=== PATIENT | female | born 1955 | race Hispanic/Latino ===

== ENCOUNTER 2021-01-28 06:27 | Day surgery (SDC) | payer MEDICARE ==
[2021-01-25 11:04] LABS: BASOPHILS % (AUTO) 1.4 % (0.0-5.0); EOSINOPHILS % (AUTO) 3.1 % (0.0-8.0); HEMATOCRIT 42.2 % (36-48); MEAN CORPUSCULAR HEMOGLOBIN 31.5 pg (27.0-33.0); MEAN CORPUSCULAR HGB CONC 32.7 g/dL (32.0-36.0); MEAN CORPUSCULAR VOLUME 96.3 fL (79-99); NEUTROPHILS % (AUTO) 65.1 % (40.0-77.0); PLATELET COUNT (AUTO) 334 K/uL (130-400); RED BLOOD CELL COUNT(AUTO) 4.38 MIL/uL (4.00-5.50); RED CELL DISTRIBUTION WIDTH 12.6 % (11.0-15.5)
[2021-01-25 11:57] LABS: CREATININE 0.8 mg/dL (0.5-1.5); POTASSIUM 4.1 mmol/L (3.5-5.1)
[2021-01-25 12:12] LABS: INR 1.01 (0.85-1.15)
[~2021-01-28] VITALS: Ht 152.4 cm; Wt 86.6 kg
[2021-01-28] VITALS (20 sets, daily range): BP systolic 135–159; BP diastolic 45–75
[~2021-01-28 06:27] MED LIST: ALBU8.5H8 IH; ASPI-1443 PO; CHOL500045 PO; FURO20TA4 PO; GABA300C PO; LOSA50TA64 PO; METF-444 PO; METO-408 PO; MONT-39 PO; NAPR-1023 PO; OMEG100014 PO; OMEP20TA25 PO; ROSU20TA31 PO
[2021-01-28] MEDS ORDERED: LIDOCAINE PF 100MG/5ML (2%) SYRINGE 5ML ONE (06:51)
[2021-01-28] MEDS ORDERED: SUCCINYLCHOLINE CHLORIDE 20 MG/ML 10 ML VIAL ONE (06:51)
[2021-01-28] MEDS ORDERED: ONDANSETRON 4MG INJ ONE (06:51)
[2021-01-28] MEDS ORDERED: GLYCOPYRROLATE 1 MG/5 ML SYRINGE ONE (06:52)
[2021-01-28] MEDS ORDERED: NEOSTIGMINE 5MG/5ML SYR IV ONE (06:52)
[2021-01-28] MEDS ORDERED: PROPOFOL 10 MG/ML 20ML VIAL IV ONE (06:52)
[2021-01-28] MEDS ORDERED: ROCURONIUM 10MG/1ML SYR 10 MG/ML ML ONE (06:52)
[2021-01-28] MEDS ORDERED: DEXAMETHASONE SOD PHOSPHATE 10MG/ML 1ML VIAL ONE (06:52)
[2021-01-28] MEDS ORDERED: MIDAZOLAM HCL 1 MG/ML 2ML VIAL ONE (06:52)
[2021-01-28] MEDS ORDERED: FENTANYL CITRATE PF 50 MCG/1 ML 2ML VIAL ONE (06:52)
[2021-01-28] MEDS ORDERED: EPHEDRINE SULFATE 50 MG/ML AMPULE ONE (06:56)
[2021-01-28] MEDS ORDERED: CEFAZOLIN SODIUM 1 GM VIAL ONE (07:00)
[2021-01-28] MEDS ORDERED: 0.9%NACL 1000ML 1,000 ML IV ONE (07:01)
[2021-01-28] MEDS ORDERED: BUPIVACAINE/EPI/PF 0.25% 30ML VIAL IJ ONE (07:02)
[2021-01-28] MEDS ORDERED: SUGAMMADEX SODIUM 200 MG/2 ML VIAL IV ONE (08:28)
== END 2021-01-28 11:25 | disposition home or self-care (01) ==
LOC: DAH 06:27
PROVIDERS: ATTEND Orthopaedic Surgery Orthopaedic Surgery of the Spine
DX: S83.282A Other tear of lateral meniscus, current injury, left knee, initial encounter (principal); Z20.822 Contact with and (suspected) exposure to COVID-19; J45.909 Unspecified asthma, uncomplicated; E66.9 Obesity, unspecified; I25.10 Atherosclerotic heart disease of native coronary artery without angina pectoris; I10 Essential (primary) hypertension; E78.5 Hyperlipidemia, unspecified; M19.90 Unspecified osteoarthritis, unspecified site; E11.9 Type 2 diabetes mellitus without complications; Z90.49 Acquired absence of other specified parts of digestive tract; Z95.5 Presence of coronary angioplasty implant and graft; Z90.89 Acquired absence of other organs; Z79.01 Long term (current) use of anticoagulants; Z98.890 Other specified postprocedural states; Z79.899 Other long term (current) drug therapy; Z79.82 Long term (current) use of aspirin; Z88.6 Allergy status to analgesic agent; X58.XXXA Exposure to other specified factors, initial encounter; Y93.89 Activity, other specified; Y92.89 Other specified places as the place of occurrence of the external cause
CPT/HCPCS: 29881; 36415 ×2; 80048; 82948 ×2; 85025; 85610; 86850 ×2; 86900 ×2; 86901 ×2; 87635; 93005; 97039; 97116; 97161; A4215; A4221; A4222; A4223; A4606; A4649 ×3; A4663; A4930 ×3; A6223; C9803; J0330; J0690; J1100; J2001; J2250; J2405; J2704; J2710; J3010; J3490 ×3; J7030

== ENCOUNTER 2022-08-15 11:08 | Observation (INO) | payer OTHER, MEDICARE ==
[~2022-08-15] VITALS: Ht 152.4 cm; Wt 81.8 kg
[~2022-08-15 11:08] MED LIST changes: +OMEP20TA20 PO; -OMEP20TA25 PO; -ROSU20TA31 PO; +ROSU20TA73 PO
[2022-08-15 12:05] LABS: BASOPHILS % (AUTO) 0.6 % (0.0-5.0); EOSINOPHILS % (AUTO) 1.9 % (0.0-8.0); HEMATOCRIT 38.2 % (36-48); LYMPHOCYTES % (AUTO) 20.8 % (21.0-51.0); MEAN CORPUSCULAR HEMOGLOBIN 31.6 pg (27.0-33.0); MEAN CORPUSCULAR VOLUME 92.7 fL (79-99); MONOCYTES % (AUTO) 4.9 % (3.0-13.0); NEUTROPHILS % (AUTO) 70.5 % (40.0-77.0); PLATELET COUNT (AUTO) 367 K/uL (130-400); RED BLOOD CELL COUNT(AUTO) 4.12 MIL/uL (4.00-5.50); RED CELL DISTRIBUTION WIDTH 12.9 % (11.0-15.5); WHITE BLOOD COUNT (AUTO) 12.6 K/uL (4.8-10.8)
[2022-08-15 12:11] LABS: APPEARANCE,URINE CLOUDY (CLEAR); BILIRUBIN,URINE NEGATIVE (NEGATIVE); COLOR,URINE LIGHT-YELLOW (YELLOW); GLUCOSE, URINE (UA) NEGATIVE (NEGATIVE); KETONES,URINE NEGATIVE (NEGATIVE); LEUKOCYTE ESTERASE ,URINE 25 Leu/uL (NEGATIVE); NITRATE,URINE NEGATIVE (NEGATIVE); OCCULT BLOOD,URINE LARGE (NEGATIVE); PROTEIN,URINE 10 mg/dL (NEGATIVE); UROBILINOGEN,URINE 0.2 mg/dL (0.2-1.0)
[2022-08-15 12:21] LABS: POTASSIUM 4.2 mmol/L (3.5-5.1)
[2022-08-15 12:26] LABS: ALBUMIN 3.5 g/dL (3.5-5.0); TOTAL PROTEIN, SERUM 7.6 g/dL (6.0-8.3)
[2022-08-15 12:29] LABS: BACTERIA,URINE RARE /HPF (None Seen); MUCUS,URINE RARE LPF (None Seen); RBC,URINE TNTC /HPF (0-1); SQUAMOUS EPITHELIAL CELL,UR RARE /HPF (0-2); TRANSITIONAL EPI CELLS,URINE RARE /HPF (None Seen); URIC ACID CRYSTALS,URINE RARE /LPF (None Seen)
[2022-08-15] MEDS ORDERED: PROCHLORPERAZINE 10MG/2ML INJ IV ONE (12:30)
[2022-08-15] MEDS ORDERED: ACETAMINOPHEN 500 MG TABLET PO ONE (12:30)
[2022-08-15] MEDS ORDERED: DiphenhydrAMINE HCL 50 MG/ML VIAL IV ONE (12:30)
[2022-08-15] MEDS ORDERED: 0.9%NACL 1000ML 1,000 ML IV ONE (12:30)
[2022-08-15] MEDS ORDERED: 0.9%NACL 1000ML 500 ML IV ONE ×2 (12:30→16:30)
[2022-08-15] MEDS ORDERED: CEFTRIAXONE 1G VIAL IVPB ONE (14:30)
[2022-08-15] MEDS ORDERED: KETOROLAC 15MG/ML VIAL (15MG/ML) IV PRN (16:30)
[2022-08-15 17:20] LABS: HEMOGLOBIN A1C 6.3 % (4.0-6.0)
[2022-08-15] MEDS: IPRATROPIUM/ALBUTEROL SULFATE 3 ML SOLUTION IH SCH (18:23)
[2022-08-15] MEDS: CARVEDILOL 12.5 MG TABLET PO SCH (20:07)
[2022-08-15 22:23] LABS: AMPHET/METH SCREEN,URINE NEGATIVE (NEGATIVE); BARBITURATE SCREEN, URINE NEGATIVE (NEGATIVE); BENZODIAZEPINES SCREEN,URINE NEGATIVE (NEGATIVE); CANNABINOID SCREEN,URINE NEGATIVE (NEGATIVE); COCAINE SCREEN,URINE NEGATIVE (NEGATIVE); OPIATE SCREEN,URINE NEGATIVE (NEGATIVE); PHENCYCLIDINE SCREEN,URINE NEGATIVE (NEGATIVE)
[2022-08-15 22:45] VITALS: BP 152/63
[2022-08-15] MEDS ORDERED: MULT-1290 PO (23:47)
[2022-08-15] MEDS ORDERED: IBUP-2077 PO (23:47)
[2022-08-15] MEDS ORDERED: LOSA1TAB42 PO (23:48)
[2022-08-15] MEDS ORDERED: CARV12.511 PO (23:50)
[2022-08-15] MEDS ORDERED: FLUT1AER IH (23:52)
[2022-08-15] MEDS ORDERED: FLUT16H NASAL (23:52)
[2022-08-16] MEDS: IPRATROPIUM/ALBUTEROL SULFATE 3 ML SOLUTION IH SCH ×5 (00:01→23:18)
[2022-08-16 02:00] VITALS: BP 119/52
[2022-08-16 04:00] VITALS: BP 135/52
[2022-08-16 08:00] VITALS: BP 135/55
[2022-08-16] MEDS ORDERED: PNEUMOCOCCAL VACCINE POLYVALENT 0.5 ML/VIAL [PPV] IM ONE (09:00)
[2022-08-16] MEDS ORDERED: FLUTICASONE PROPIONATE 50MCG/SPRAY 16 GM BOTTLE EN PRN (09:30)
[2022-08-16 10:07] LABS: BASOPHILS % (AUTO) 0.6 % (0.0-5.0); EOSINOPHILS % (AUTO) 1.6 % (0.0-8.0); LYMPHOCYTES % (AUTO) 20.9 % (21.0-51.0); MEAN CORPUSCULAR HEMOGLOBIN 31.2 pg (27.0-33.0); MEAN CORPUSCULAR HGB CONC 33.3 g/dL (32.0-36.0); MEAN CORPUSCULAR VOLUME 93.5 fL (79-99); MONOCYTES % (AUTO) 5.1 % (3.0-13.0); NEUTROPHILS % (AUTO) 70.5 % (40.0-77.0); PLATELET COUNT (AUTO) 280 K/uL (130-400); RED BLOOD CELL COUNT(AUTO) 3.53 MIL/uL (4.00-5.50); RED CELL DISTRIBUTION WIDTH 12.9 % (11.0-15.5); WHITE BLOOD COUNT (AUTO) 9.5 K/uL (4.8-10.8)
[2022-08-16 10:29] LABS: CREATININE 0.9 mg/dL (0.5-1.5); POTASSIUM 3.4 mmol/L (3.5-5.1); TOTAL PROTEIN, SERUM 6.5 g/dL (6.0-8.3)
[2022-08-16] MEDS: PANTOPRAZOLE 40 MG/VIAL IVP SCH (11:05)
[2022-08-16] MEDS: CEFTRIAXONE 2GM VIAL IVPB SCH (11:07)
[2022-08-16] MEDS: CARVEDILOL 12.5 MG TABLET PO SCH ×2 (11:07→20:42)
[2022-08-16 12:00] VITALS: BP 136/76
[2022-08-16] MEDS: LOSARTAN 50 MG TABLET PO SCH (13:04)
[2022-08-16] MEDS: ASPIRIN 81 MG EC TAB PO SCH (13:04)
[2022-08-16] MEDS: FLUTICASONE/VILANTEROL 1 EACH AER.POW.BA IH SCH (13:05)
[2022-08-16] MEDS ORDERED: PROCHLORPERAZINE EDISYLATE 5 MG/ML 2 ML VIAL IVP SCH (14:00)
[2022-08-16 16:00] VITALS: BP 111/49
[2022-08-16] MEDS ORDERED: ACETAMINOPHEN 500 MG TABLET PO PRN (17:00)
[2022-08-16] MEDS: SOLU-MEDROL 40MG VIAL IVP SCH (18:02)
[2022-08-16 20:00] VITALS: BP 135/45
[2022-08-17] VITALS: BP 127/51
[2022-08-17] MEDS: LOSARTAN 50 MG TABLET PO SCH ×2 (00:06→12:02)
[2022-08-17] MEDS: SOLU-MEDROL 40MG VIAL IVP SCH ×2 (00:13→08:46)
[2022-08-17 04:00] VITALS: BP 134/46
[2022-08-17] MEDS ORDERED: PNEUMOCOCCAL VACCINE POLYVALENT 0.5 ML/VIAL [PPV] IM ONE (05:00)
[2022-08-17 05:12] LABS: BASOPHILS % (AUTO) 0.2 % (0.0-5.0); HEMATOCRIT 33.1 % (36-48); LYMPHOCYTES % (AUTO) 11.9 % (21.0-51.0); MEAN CORPUSCULAR HEMOGLOBIN 31.7 pg (27.0-33.0); MEAN CORPUSCULAR HGB CONC 34.4 g/dL (32.0-36.0); MEAN CORPUSCULAR VOLUME 91.9 fL (79-99); MONOCYTES % (AUTO) 0.3 % (3.0-13.0); NEUTROPHILS % (AUTO) 86.6 % (40.0-77.0); PLATELET COUNT (AUTO) 284 K/uL (130-400); RED CELL DISTRIBUTION WIDTH 12.7 % (11.0-15.5); WHITE BLOOD COUNT (AUTO) 11.4 K/uL (4.8-10.8)
[2022-08-17 05:31] LABS: CREATININE 0.8 mg/dL (0.5-1.5); POTASSIUM 3.8 mmol/L (3.5-5.1); TOTAL PROTEIN, SERUM 6.9 g/dL (6.0-8.3)
[2022-08-17] MEDS: IPRATROPIUM/ALBUTEROL SULFATE 3 ML SOLUTION IH SCH ×2 (06:38→11:19)
[2022-08-17 08:00] VITALS: BP 128/57
[2022-08-17] MEDS: CEFTRIAXONE 2GM VIAL IVPB SCH (08:43)
[2022-08-17] MEDS: PANTOPRAZOLE 40 MG/VIAL IVP SCH (08:43)
[2022-08-17] MEDS: FLUTICASONE/VILANTEROL 1 EACH AER.POW.BA IH SCH (08:43)
[2022-08-17] MEDS: CARVEDILOL 12.5 MG TABLET PO SCH (08:46)
[2022-08-17] MEDS ORDERED: ASPIRIN 81 MG EC TAB PO SCH (09:00)
[2022-08-17] MEDS ORDERED: ENOXAPARIN SODIUM 40 MG/0.4 ML SYRINGE SQ SCH (09:00)
[2022-08-17] MEDS ORDERED: MONTELUKAST SODIUM 10 MG TAB PO SCH (09:00)
[2022-08-17] MEDS ORDERED: MULTIVITAMIN TABLET PO SCH (09:00)
[2022-08-17] MEDS ORDERED: ATORVASTATIN 40 MG TABLET PO SCH (09:00)
[2022-08-17 12:00] VITALS: BP 143/53
[2022-08-17] MEDS: ASPIRIN 81 MG EC TAB PO SCH (12:02)
[2022-08-17] MEDS ORDERED: AMOX-426 PO (13:41)
[2022-08-17] MEDS ORDERED: PRED20TA3 PO (13:41)
[2022-08-17] MEDS ORDERED: SOLU-MEDROL 40MG VIAL IVP SCH (21:00)
== END 2022-08-17 14:25 | disposition home or self-care (01) ==
LOC: EDH 11:08 → INTOOBSV 16:10 → EDHIP 16:10 → 4CH 22:45
PROVIDERS: ADMIT Internal Medicine; ATTEND Internal Medicine
DX: G43.909 Migraine, unspecified, not intractable, without status migrainosus (principal); Z20.822 Contact with and (suspected) exposure to COVID-19; I25.110 Atherosclerotic heart disease of native coronary artery with unstable angina pectoris; I11.0 Hypertensive heart disease with heart failure; I50.33 Acute on chronic diastolic (congestive) heart failure; J45.901 Unspecified asthma with (acute) exacerbation; E78.00 Pure hypercholesterolemia, unspecified; R07.89 Other chest pain; R06.00 Dyspnea, unspecified; G51.0 Bell's palsy; N39.0 Urinary tract infection, site not specified; Z71.85 Encounter for immunization safety counseling; Z23 Encounter for immunization; Z79.82 Long term (current) use of aspirin; Z86.16 Personal history of COVID-19; Z87.01 Personal history of pneumonia (recurrent); Z90.49 Acquired absence of other specified parts of digestive tract; Z79.899 Other long term (current) drug therapy; Z98.890 Other specified postprocedural states
CPT/HCPCS: 94640 ×7; 96365; 96375 ×2; 99285; 83036; 84443; 84484 ×3; 80053 ×3; 83880; 80305; 85025 ×3; 85378; 87088; 87804 ×2; 81001; 36415 ×3; 87635; 71045; 70450; 93005; 96366 ×2; 83735 ×2; 82948 ×4; 76770; 93306; 93356; 70551; 96376; 96372; 90732; 97161; 97116; G0378 ×41; C9803; J1200; J7030; J0780; J0696 ×3; J2920 ×3; C9113 ×2; J1885; G0009; J1650; 94664; 96361